=== PATIENT | female | born 1970 | race African-American/Black ===

== ENCOUNTER 2019-01-15 16:53 | Emergency (ER) | payer OTHER ==
[~2019-01-15] VITALS: Ht 175.3 cm; Wt 86.4 kg
[~2019-01-15 16:53] MED LIST: percocet
[2019-01-15] MEDS ORDERED: GABA-533 PO (17:02)
[2019-01-15] MEDS ORDERED: KETOROLAC TROMETHAMINE 30 MG/ML VIAL IM ONE (17:45)
[2019-01-15 18:05] VITALS: BP 116/80
== END 2019-01-15 18:45 | disposition home or self-care (01) ==
LOC: EMS 16:54
DX: S93.601A Unspecified sprain of right foot, initial encounter (principal); S93.401A Sprain of unspecified ligament of right ankle, initial encounter; F17.210 Nicotine dependence, cigarettes, uncomplicated; Z90.49 Acquired absence of other specified parts of digestive tract; Z88.0 Allergy status to penicillin; W23.0XXA Caught, crushed, jammed, or pinched between moving objects, initial encounter; Y93.01 Activity, walking, marching and hiking; Y92.89 Other specified places as the place of occurrence of the external cause; Y99.8 Other external cause status
CPT/HCPCS: 73610; 73630; 96372; 99283; 99406; J1885

== ENCOUNTER 2021-11-22 08:25 | Emergency (ER) | payer OTHER ==
[~2021-11-22] VITALS: Ht 167.6 cm; Wt 79.5 kg
[~2021-11-22 08:25] MED LIST changes: +GABA-1201 PO; -percocet
[2021-11-22] MEDS: LIDOCAINE 5% TRANSDERMAL PATCH TD ONE (11:48)
[2021-11-22] MEDS: BACLOFEN 10 MG TABLET PO ONE (11:48)
[2021-11-22] MEDS: KETOROLAC TROMETHAMINE 30 MG/ML VIAL IM ONE (11:49)
[2021-11-22 12:37] VITALS: BP 129/84
[2021-11-22] MEDS ORDERED: GABA-1181 PO (12:53)
[2021-11-22] MEDS ORDERED: BACL10TA PO (12:53)
== END 2021-11-22 13:25 | disposition home or self-care (01) ==
LOC: EMS 08:25
DX: M54.32 Sciatica, left side (principal); F17.210 Nicotine dependence, cigarettes, uncomplicated; Z87.39 Personal history of other diseases of the musculoskeletal system and connective tissue; Z86.69 Personal history of other diseases of the nervous system and sense organs; Z90.49 Acquired absence of other specified parts of digestive tract; Z98.51 Tubal ligation status; Z88.0 Allergy status to penicillin
CPT/HCPCS: 96372; 99283; J1885